=== PATIENT | male | born 1985 | race Caucasian/White ===

== ENCOUNTER 2019-01-04 23:00 | Emergency (ER) | payer SELFPAY ==
[2019-01-04 23:20] VITALS: RESP 16
[2019-01-04 23:51] LABS: INFLUENZA A B NEGATIVE FOR FLU A/B (NEGATIVE)
[2019-01-04] MEDS ORDERED: Benzocaine/Menthol (Cepacol) Lozenge MT STA (23:53)
[2019-01-04] MEDS ORDERED: Amoxicillin-Clav 875-125 mg Tab PO STA (23:55)
--- NOTE | 2019-01-04 23:56 | C.PDOC ---
History Of Present Illness 33 year old male, with no significant past medical history, presents to the ED for evaluation of sore throat which began two days ago. Patient states his pain is worse with swallowing, but he is able to tolerate PO intake. Patient is also complaining of intermittent left ear pain. He has not taken any medicine for pain. He denies fever, chills, cough, congestion, vomiting, voice hoarseness, neck pain/stiffness, headache, dizziness, vision change. Time Seen by Provider: 01/04/19 23:16 Chief Complaint (Nursing): ENT Problem History Per: Patient History/Exam Limitations: no limitations Onset/Duration Of Symptoms: Days (2) Current Symptoms Are (Timing): Still Present Associated Symptoms: denies: Fever, Vomiting PMH - Family History Family History: States: Unknown Family Hx - Immunization History Hx Tetanus Toxoid Vaccination: No Hx Influenza Vaccination: No ED Course And Treatment O2 Sat by Pulse Oximetry: 98 (on RA ) Pulse Ox Interpretation: Normal Disposition - Disposition Referrals: [facility] [Outside] Sam Green MD [Staff Provider] - Disposition: HOME/ ROUTINE Additional Instructions: Cepacol cada 2 horas segn sea necesario. Aumentar cada 12 horas castro 10 maloney. Aumentar los fluidos Ibuprofeno / tylenol para el dolor segn sea necesario Seguimiento con mdico primario o clnica dentro de 2 maloney. Regrese a la aubree de emergencias para cualquier sntoma nuevo / que empeora. Prescriptions: Amoxicillin/Clavulanate [Augmentin 875 MG-125 MG] 1 tab PO Q12H #19 tab Benzocaine/Menthol [Cepacol Sore Throat Lozenge] 1 each MM Q2H PRN #30 lozenge PRN Reason: Sore Throat Instructions: Sore Throat in Adults Forms: [facility] (Kiswahili) Print Language: ETHIOPIAN - PA / SENIOR ELECTRONICS DESIGN ENGINEER / Resident Statement MD/DO has reviewed & agrees with the documentation as recorded. - Scribe Statement The provider has reviewed the documentation as recorded by the Scribe (Tanna You) All medical record entries made by the Scribe were at my direction and personally dictated by me. I have reviewed the chart and agree that the record accurately reflects my personal performance of the history, physical exam, medical decision making, and the department course for this patient. I have also personally directed, reviewed, and agree with the discharge instructions and disposition.
[2019-01-05] MEDS ORDERED: Amoxicillin-Clav 875-125 mg Tab PO ONE (00:04)
[2019-01-05 00:26] VITALS: BP 104/70; PULSE 72; TEMP 98
[2019-01-05 05:24] VITALS: O2SAT 98
--- NOTE | 2019-01-05 05:28 | C.PDOC ---
History Of Present Illness 33 year old male, with no significant past medical history, presents to the ED for evaluation of sore throat which began two days ago. Patient states his pain is worse with swallowing, but he is able to tolerate PO intake. Patient is also complaining of intermittent left ear pain. He has not taken any medicine for pain. He denies fever, chills, cough, congestion, vomiting, voice hoarseness, neck pain/stiffness, headache, dizziness, vision change, or any other associated symptoms. Time Seen by Provider: 01/04/19 23:16 Chief Complaint (Nursing): ENT Problem History Per: Patient History/Exam Limitations: None Onset/Duration Of Symptoms: Days (2) Current Symptoms Are (Timing): Still Present Past Medical History Reviewed: Historical Data, Nursing Documentation, Vital Signs Vital Signs: Last Vital Signs Temp 98 F 01/05/19 00:25 Pulse 72 01/05/19 00:25 Resp 16 01/05/19 00:25 BP 104/70 01/05/19 00:25 Pulse Ox 98 01/05/19 05:23 - Medical History PMH: No Chronic Diseases Surgical History: No Surg Hx Family History: States: Unknown Family Hx - Social History Hx Alcohol Use: No Hx Substance Use: No - Immunization History Hx Tetanus Toxoid Vaccination: No Hx Influenza Vaccination: No Review Of Systems Constitutional: Negative for: Fever, Chills Eyes: Negative for: Pain, Vision Change ENT: Positive for: Ear Pain (left), Throat Pain. Negative for: Ear Discharge, Nose Congestion, Mouth Pain, Mouth Swelling, Throat Swelling Cardiovascular: Negative for: Chest Pain, Palpitations, Light Headedness Respiratory: Negative for: Cough, Shortness of Breath Gastrointestinal: Negative for: Nausea, Vomiting, Abdominal Pain, Diarrhea Musculoskeletal: Negative for: Neck Pain, Back Pain Skin: Negative for: Rash Neurological: Negative for: Weakness, Numbness, Headache, Dizziness Physical Exam - Physical Exam Appears: Well, Non-toxic, No Acute Distress Skin: Normal Color, Warm, Dry Head: Atraumatic, Normacephalic Eye(s): bilateral: Normal Inspection, PERRL, EOMI Ear(s): Left: TM Erythema (mild), Other (no bulging or drainage ), Right: Normal Nose: Normal, No Discharge Oral Mucosa: Moist Tongue: Normal Appearing Lips: Normal Appearing Throat: Exudate (right tonsil), No Drooling, Other (bilateral tonsillar swelling and erythema; NO uvular deviation or hot potato voice) Neck: Normal, Normal ROM, No Midline Cervical Tenderness, No Paracervical Tenderness, No Step Off Deformity, No Other (no meningeal signs) Lymphatic: Adenopathy (anterior, cervical ) Chest: Symmetrical, No Deformity, No Tenderness Cardiovascular: Rhythm Regular, No Murmur Respiratory: Normal Breath Sounds, No Rales, No Rhonchi, No Wheezing Gastrointestinal/Abdominal: Soft, No Tenderness Back: Normal Inspection, No CVA Tenderness, No Decreased ROM, No Muscle Spasm Extremity: Normal ROM, No Tenderness, Capillary Refill (less than 2 seconds ) Pulses: Left Radial: Normal, Right Radial: Normal Neurological/Psych: Oriented x3, Normal Speech, Normal Cognition, Normal Motor, Normal Sensation Gait: Steady ED Course And Treatment O2 Sat by Pulse Oximetry: 98 (on RA ) Medical Decision Making Medical Decision Making: Progress: Flu swab ordered, resulted negative. Rapid Strep test ordered, resulted negative. Will treat for pharyngitis despite negative rapid strep secondary to Centor Score of 3 Augmentin PO and Cepacol MT given. On reassessment, patient is resting comfortably, showing no signs of distress, and is stable for discharge. Patient is advised to follow up with PMD within 1-2 days for further evaluation. Diagnostic testing results and plan of care discussed with patient. Strict instructions given regarding prescription use, importance of followup, and signs/symptoms to return to ER including vomiting, fever, chills, hoarse voice, worsening pain, or any other new/worsening symptoms. Pt verbalized understanding of discussion. Patient is A&Ox3, ambulating with steady gait, with vital signs stable for discharge. Disposition - Disposition Referrals: [facility] [Outside] Sam Green MD [Staff Provider] - Disposition: HOME/ ROUTINE Disposition Time: 00:15 Condition: IMPROVED Additional Instructions: Cepacol cada 2 horas segn sea necesario. Aumentar cada 12 horas castro 10 maloney. Aumentar los fluidos Ibuprofeno / tylenol para el dolor segn sea necesario Seguimiento con mdico primario o clnica dentro de 2 maloney. Regrese a la aubree de emergencias para cualquier sntoma nuevo / que empeora. Prescriptions: Amoxicillin/Clavulanate [Augmentin 875 MG-125 MG] 1 tab PO Q12H #19 tab Benzocaine/Menthol [Cepacol Sore Throat Lozenge] 1 each MM Q2H PRN #30 lozenge PRN Reason: Sore Throat Instructions: Sore Throat in Adults Forms: [employer] [facility] (Hebrew) Print Language: KINYARWANDA - Clinical Impression Clinical Impression: Pharyngitis - PA / HOGSHEAD FILLER / Resident Statement MD/DO has reviewed & agrees with the documentation as recorded. - Scribe Statement The provider has reviewed the documentation as recorded by the Scribe (Tanna You) All medical record entries made by the Scribe were at my direction and personally dictated by me. I have reviewed the chart and agree that the record accurately reflects my personal performance of the history, physical exam, medical decision making, and the department course for this patient. I have also personally directed, reviewed, and agree with the discharge instructions and disposition.
== END 2019-01-05 00:26 | disposition home or self-care (01) ==
LOC: C.ER 23:00
DX: J02.9 Acute pharyngitis, unspecified (principal)